=== PATIENT | female | born 1965 | race Caucasian/White ===

== ENCOUNTER 2016-08-02 12:09 | Emergency (ER) | payer SELFPAY ==
[~2016-08-02] VITALS: Ht 157.5 cm; Wt 46.7 kg
[2016-08-02 12:35] VITALS: BP 142/69
[2016-08-02] MEDS ORDERED: POLY17PO5 PO (13:23)
[2016-08-02] MEDS ORDERED: HYDR-971 PO (13:23)
[2016-08-02] MEDS ORDERED: HYDR30CR61 TP (13:23)
--- NOTE | 2016-08-02 13:23 | PHYS DOC ---
Past Medical History Past Medical History: Cancer Additional Past Medical Histor: cervix Past Surgical History: Appendectomy, , Tubal ligation Alcohol Use: None Drug Use: None Adult General Chief Complaint Chief Complaint: HEMORRHOIDS HPI HPI Patient is a 51 year old female presents emergency room with atraumatic anal pain and swelling for approximately one week. Patient does have a previous history of hemorrhoids flaring and childbirth in the past. She denies any history of colorectal disease. Patient denies abdominal pain, nausea, vomiting, diarrhea or constipation.-colored stools. Review of Systems Review of Systems Constitutional: Denies fever or chills [] Eyes: Denies change in visual acuity, redness, or eye pain [] HENT: Denies nasal congestion or sore throat [] Respiratory: Denies cough or shortness of breath [] Cardiovascular: No additional information not addressed in HPI [] GI: Denies abdominal pain, nausea, vomiting, bloody stools or diarrhea [] : Denies dysuria or hematuria [] Musculoskeletal: Denies back pain or joint pain [] Integument: Denies rash or skin lesions [] Neurologic: Denies headache, focal weakness or sensory changes [] Endocrine: Denies polyuria or polydipsia [] Allergies Allergies Allergies Coded Allergies Type Severity Reaction Last Updated Verified Sulfa (Sulfonamide Antibiotics) Allergy Intermediate 03/03/15 No codeine Allergy Intermediate 03/03/15 No Physical Exam Physical Exam Constitutional: Well developed, well nourished, no acute distress, non-toxic appearance. [] HENT: Normocephalic, atraumatic, bilateral external ears normal, oropharynx moist, no oral exudates, nose normal. [] Eyes: PERRLA, EOMI, conjunctiva normal, no discharge. [] Neck: Normal range of motion, no tenderness, supple, no stridor. [] Cardiovascular:Heart rate regular rhythm, no murmur [] Lungs & Thorax: Bilateral breath sounds clear to auscultation [] Abdomen: Bowel sounds normal, soft, no tenderness, no masses, no pulsatile masses. Grape-sized thrombosed hemorrhoid to the 5 o'clock position of patient' s anus. No active bleeding. Skin: Warm, dry, no erythema, no rash. [] Back: No tenderness, no CVA tenderness. [] Extremities: No tenderness, no cyanosis, no clubbing, ROM intact, no edema. [] Neurologic: Alert and oriented X 3, normal motor function, normal sensory function, no focal deficits noted. [] Psychologic: Affect normal, judgement normal, mood normal. [] Current Patient Data Vital Signs Vital Signs Date Time Temp Pulse Resp B/P Pulse Ox O2 Delivery O2 Flow Rate FiO2 08/02/16 12:35 98.5 107 16 97 Room Air 98.5 EKG EKG [] Radiology/Procedures Radiology/Procedures [] Course & Med Decision Making Course & Med Decision Making Pertinent Labs and Imaging studies reviewed. (See chart for details) [] Dragon Disclaimer Dragon Disclaimer This electronic medical record was generated, in whole or in part, using a voice recognition dictation system. Departure Departure Impression: Primary Impression: Hemorrhoid thrombosis Disposition: HOME, SELF-CARE Condition: GOOD Referrals: NO PCP (PCP) Patient Instructions: Hemorrhoids, [id number] Additional Instructions: 1. Take the medication as prescribed. X line 2. Review the discharge instructions provided for self-care and reasons to return the emergency room. 3. Call [phone] either this afternoon or tomorrow to schedule follow-up appointment for evaluation by a surgeon. Scripts Polyethylene Glycol 3350 (Miralax)17 Gm Powd.pack1 Packet PO DAILY #30 PACKET Ref 0 Prov:JAVI MURPHY 08/02/16 Hydrocortisone (Anusol-Hc)30 Gm Cream..g.1 Asha TP BID #30 GM Ref 1 Prov:JAVI MURPHY 08/02/16 Hydrocodone/Apap 5-325 ([place] 5-325 Tablet)1 Each Tablet1 Tab PO PRN Q6HRS PRN PAIN #10 TAB Prov:JAVI MURPHY 08/02/16 JAVI MURPHY Aug 02, 2016 13:23
== END 2016-08-02 13:35 | disposition home or self-care (01) ==
LOC: ER 12:09
DX: K64.5 Perianal venous thrombosis (principal); Z88.5 Allergy status to narcotic agent; Z88.2 Allergy status to sulfonamides; Z90.49 Acquired absence of other specified parts of digestive tract; Z98.51 Tubal ligation status
CPT/HCPCS: 99283

== ENCOUNTER 2018-07-10 21:14 | Emergency (ER) | payer OTHER ==
[~2018-07-10] VITALS: Ht 157.5 cm; Wt 50.8 kg
[~2018-07-10 21:14] MED LIST: HYDR-3164 PO; HYDR30CR61 TP; POLY17PO29 PO
[2018-07-10] MEDS ORDERED: MORPHINE SULFATE 4 MG/ML VIAL. IV ONE (21:30)
--- NOTE | 2018-07-10 21:32 | PHYS DOC ---
Past Medical History Past Medical History: Asthma, Cancer Additional Past Medical Histor: cervix Past Surgical History: Appendectomy, , Tubal ligation Smoking: Cigarettes, 1 Pack Per Day Alcohol Use: None Drug Use: None Adult General Chief Complaint Chief Complaint: GROIN PAIN HPI HPI Patient is a 53-year-old female presents to the emergency department for evaluation. The patient states for the past 2-3 days, she has had pain in her right groin. She denies any injury. Movement and palpation of the affected area worsen her pain. She states that rotation of her leg, as well as flexion and extension of her thigh worsens her pain. The pain does not radiate down into her thigh or lower leg. She has not had any leg swelling, numbness, or weakness. She states she has a remote history of DVTs, during pregnancies in her 20s, but has not had any problems with DVTs since then. She does state that she has had problems with "phlebitis" in the past. There are no alleviating or exacerbating factors to her symptoms, except as noted above. Review of Systems Review of Systems Constitutional: Denies fever or chills [] Eyes: Denies change in visual acuity, redness, or eye pain [] HENT: Denies nasal congestion or sore throat [] Respiratory: Denies cough or pleuritic pain, or shortness of breath [] Cardiovascular: The patient denies any shortness of breath, chest pain, palpitations, or orthopnea [] GI: Denies abdominal pain, nausea, vomiting, bloody stools or diarrhea [] : Denies dysuria or hematuria [] Musculoskeletal: Denies back pain or joint pain [] Integument: Denies rash or skin lesions [] Neurologic: Denies headache, focal weakness or sensory changes [] Endocrine: Denies polyuria or polydipsia [] All other systems were reviewed and found to be within normal limits, except as documented in this note. Current Medications Current Medications Current Medications Medications (Trade) Dose Ordered Sig/Rosa Start Time Stop Time Status Last Admin Dose Admin Info (CONTRAST GIVEN -- Rx MONITORING) 1 each PRN DAILY PRN 07/10/18 22:30 07/12/18 22:29 Iohexol (Omnipaque 300 Mg/ml) 60 ml 1X ONCE 07/10/18 22:15 07/10/18 22:18 DC 07/10/18 22:21 60 ML Morphine Sulfate (Morphine Sulfate) 4 mg 1X ONCE 07/10/18 21:30 07/10/18 21:31 DC 07/10/18 21:49 4 MG Ondansetron HCl (Zofran) 4 mg 1X ONCE 07/10/18 21:45 07/10/18 21:46 DC 07/10/18 21:49 4 MG Allergies Allergies Allergies Coded Allergies Type Severity Reaction Last Updated Verified Sulfa (Sulfonamide Antibiotics) Allergy Intermediate 03/03/15 No codeine Allergy Intermediate 03/03/15 No amoxicillin Allergy Unknown 07/10/18 Yes clavulanic acid Allergy Unknown 07/10/18 Yes Physical Exam Physical Exam PHYSICAL EXAM: CONSTITUTIONAL: Well developed, well nourished HEAD: normocephalic, atraumatic EENT: PERRL, EOMI. Conjunctivae normal color, sclerae non-icteric; moist mucous membranes. NECK: Supple, non-tender; no meningismus. LUNGS: Lungs CTA, breathing even and unlabored. Normal air movement. HEART: Regular rate and rhythm, no murmur CHEST: No deformity; non-tender ABDOMEN: The abdomen is soft, and non-tender, no masses or bruits. EXTREM: There is tenderness to palpation in the right groin/inguinal area, just lateral to the pubic symphysis on the right, without any skin changes or abscess. The tenderness to palpation is just medial to the femoral vein region, but appears somewhat more medial than the location of the femoral vein's assumed location, based on palpation of the femoral artery. There is no tenderness to palpation in the proximal thigh, however, and there is no edema noted to the right lower extremity. Normal ROM; no deformity, no calf tenderness. Normal pulses palpable in all extremities. There is no pedal edema. SKIN: No rash; no diaphoresis NEURO: Alert; normal speech and cognition; CN's grossly intact; strength grossly intact without focal deficit. BACK: No CVA TTP. Current Patient Data Vital Signs Vital Signs Date Time Temp Pulse Resp B/P (MAP) Pulse Ox O2 Delivery O2 Flow Rate FiO2 07/10/18 21:28 97.7 78 18 157/69 (98) 99 Room Air 97.7 Lab Values Laboratory Tests Test 07/10/18 21:38 White Blood Count 7.1 x10^3/uL (4.0-11.0) Red Blood Count 4.42 x10^6/uL (3.50-5.40) Hemoglobin 13.4 g/dL (12.0-15.5) Hematocrit 39.5 % (36.0-47.0) Mean Corpuscular Volume 89 fL (79-100) Mean Corpuscular Hemoglobin 30 pg (25-35) Mean Corpuscular Hemoglobin Concent 34 g/dL (31-37) Red Cell Distribution Width 13.2 % (11.5-14.5) Platelet Count 300 x10^3/uL (140-400) Neutrophils (%) (Auto) 50 % (31-73) Lymphocytes (%) (Auto) 40 % (24-48) Monocytes (%) (Auto) 7 % (0-9) Eosinophils (%) (Auto) 2 % (0-3) Basophils (%) (Auto) 2 % (0-3) Neutrophils # (Auto) 3.5 x10^3uL (1.8-7.7) Lymphocytes # (Auto) 2.9 x10^3/uL (1.0-4.8) Monocytes # (Auto) 0.5 x10^3/uL (0.0-1.1) Eosinophils # (Auto) 0.1 x10^3/uL (0.0-0.7) Basophils # (Auto) 0.1 x10^3/uL (0.0-0.2) Sodium Level 145 mmol/L (136-145) Potassium Level 4.0 mmol/L (3.5-5.1) Chloride Level 107 mmol/L (98-107) Carbon Dioxide Level 31 mmol/L (21-32) Anion Gap 7 (6-14) Blood Urea Nitrogen 14 mg/dL (7-20) Creatinine 1.0 mg/dL (0.6-1.0) Estimated GFR (Cockcroft-Gault) 58.2 Glucose Level 79 mg/dL (70-99) Calcium Level 8.9 mg/dL (8.5-10.1) C-Reactive Protein, Quantitative 0.8 mg/L (0-3.3) Laboratory Tests 07/10/18 21:38 Laboratory Tests 07/10/18 21:38 EKG EKG [] Radiology/Procedures Radiology/Procedures [PROCEDURE: CT PELVIS W/CONTRAST INDICATION: rt groin pain, no priors, [id number] 60ml COMPARISON: None. TECHNIQUE: Axial CT images obtained through the pelvis with contrast. One or more of the following individualized dose reduction techniques were utilized for this examination: 1. Automated exposure control; 2. Adjustment of the mA and/or kV according to patient size; 3. Use of iterative reconstruction technique. FINDINGS: Calcific atherosclerosis of visualized vasculature. Prominent periuterine vessels are identified as well as enlargement of the left ovarian vein. Urinary bladder has minimal urine within it at time of exam. Colonic diverticulosis. Mild prominence the wall of sigmoid colon. There is a couple mildly prominent loops of small bowel within the pelvis measuring up to about 26 mm which is borderline dilated. No drainable fluid collection is seen within the subcutaneous soft tissues of the right groin. No definite fracture of pelvis. IMPRESSION: 1. No evidence of fluid collection at right groin. 2. Prominent periuterine vessels are identified. Would correlate with possible causes such as pelvic congestion. 3. Colonic diverticulosis is identified. The sigmoid colon wall appears somewhat prominent however not very distended at the time of exam. Could be from lack of distention however cannot exclude a site of persistent narrowing from a stricture within the area, diverticulitis or a lesion in the area on this examination and would correlate with symptoms in the region. If more complete evaluation is desired a follow-up could be obtained to ensure that this does not persist or colonoscopy.] Course & Med Decision Making Course & Med Decision Making Pertinent Labs and Imaging studies reviewed. (See chart for details) [11:15 PM:Patient remains stable. I discussed test results, the need for close follow-up, and return precautions. I discussed the incidentally noted CT findings with the patient and the need for follow-up with gynecology and GI for further evaluation.] Dragon Disclaimer Dragon Disclaimer This electronic medical record was generated, in whole or in part, using a voice recognition dictation system. Departure Departure Impression: Primary Impression: Groin pain Disposition: 01 HOME, SELF-CARE Condition: STABLE Referrals: RAFAEL SHELTON Jr, MD,BEL Gregory MD Patient Instructions: Groin Strain Additional Instructions: Ibuprofen 400-600 mg every 6 hours may help improve your symptoms. Applying a heating pad to the affected area may help improve your symptoms. The prescribed medications may cause drowsiness-use caution while taking. The CT scan. Incidentally noted some abnormalities in your colon, as well as the blood vessels surrounding your uterus. It is important to get further evaluation and follow-up with both a team sports sales associate, and a belt tender for these findings for further evaluation. Please contact the specialist that the numbers provided. Scripts Diclofenac Sodium (DICLOFENAC SODIUM) 50 Mg Tablet.dr 1 TAB PO BID, #20 TAB 0 Refills Prov: RA JEROME MD 07/10/18 Cyclobenzaprine Hcl (CYCLOBENZAPRINE HCL) 10 Mg Tablet 1 TAB PO TID PRN for PAIN, #30 TAB Prov: RA JEROME MD 07/10/18 RA JEROME MD Jul 10, 2018 21:32
[2018-07-10] MEDS ORDERED: ONDANSETRON PF 4 MG/2 ML VIAL. IV ONE (21:45)
[2018-07-10 21:53] LABS: BASO # 0.1 x10^3/uL (0.0-0.2); BASO % 2 % (0-3); EOS # 0.1 x10^3/uL (0.0-0.7); EOS % 2 % (0-3); HEMATOCRIT 39.5 % (36.0-47.0); HEMOGLOBIN 13.4 g/dL (12.0-15.5); LYMPH # 2.9 x10^3/uL (1.0-4.8); LYMPH % 40 % (24-48); MEAN CORPUSCULAR HEMOGLOBIN 30 pg (25-35); MEAN CORPUSCULAR HGB CONC 34 g/dL (31-37); MEAN CORPUSCULAR VOLUME 89 fL (79-100); MONO # 0.5 x10^3/uL (0.0-1.1); MONO % 7 % (0-9); NEUT # 3.5 x10^3uL (1.8-7.7); NEUT % 50 % (31-73); PLATELET COUNT 300 x10^3/uL (140-400); RED BLOOD COUNT 4.42 x10^6/uL (3.50-5.40); RED CELL DISTRIBUTION WIDTH 13.2 % (11.5-14.5); WHITE BLOOD COUNT 7.1 x10^3/uL (4.0-11.0)
[2018-07-10 22:08] LABS: CALCIUM 8.9 mg/dL (8.5-10.1); GFR 58.2
[2018-07-10 22:11] LABS: C-REACTIVE PROTEIN 0.8 mg/L (0-3.3)
[2018-07-10] MEDS ORDERED: IOHEXOL 300 MG/ML 100ML VIAL. IV ONE (22:15)
[2018-07-10 22:30] VITALS: BP 121/67
[2018-07-10] MEDS ORDERED: CONTRAST GIVEN. MC PRN (22:30)
--- NOTE | 2018-07-10 23:01 | RAD ---
INDICATION: rt groin pain, no priors, [id number] 60ml COMPARISON: None. TECHNIQUE: Axial CT images obtained through the pelvis with contrast. One or more of the following individualized dose reduction techniques were utilized for this examination: 1. Automated exposure control; 2. Adjustment of the mA and/or kV according to patient size; 3. Use of iterative reconstruction technique. FINDINGS: Calcific atherosclerosis of visualized vasculature. Prominent periuterine vessels are identified as well as enlargement of the left ovarian vein. Urinary bladder has minimal urine within it at time of exam. Colonic diverticulosis. Mild prominence the wall of sigmoid colon. There is a couple mildly prominent loops of small bowel within the pelvis measuring up to about 26 mm which is borderline dilated. No drainable fluid collection is seen within the subcutaneous soft tissues of the right groin. No definite fracture of pelvis. IMPRESSION: 1. No evidence of fluid collection at right groin. 2. Prominent periuterine vessels are identified. Would correlate with possible causes such as pelvic congestion. 3. Colonic diverticulosis is identified. The sigmoid colon wall appears somewhat prominent however not very distended at the time of exam. Could be from lack of distention however cannot exclude a site of persistent narrowing from a stricture within the area, diverticulitis or a lesion in the area on this examination and would correlate with symptoms in the region. If more complete evaluation is desired a follow-up could be obtained to ensure that this does not persist or colonoscopy. Electronically signed by: Edwin Rodriguez MD (07/10/2018 10:57 PM) [facility]
[2018-07-10] MEDS ORDERED: DICL50TA4 PO (23:21)
[2018-07-10] MEDS ORDERED: CYCL10TA2 PO (23:21)
== END 2018-07-10 23:33 | disposition home or self-care (01) ==
LOC: ER 21:14
DX: R10.31 Right lower quadrant pain (principal); J45.909 Unspecified asthma, uncomplicated; F17.210 Nicotine dependence, cigarettes, uncomplicated; Z90.89 Acquired absence of other organs; Z88.2 Allergy status to sulfonamides; Z88.1 Allergy status to other antibiotic agents; Z88.5 Allergy status to narcotic agent; Z88.8 Allergy status to other drugs, medicaments and biological substances
CPT/HCPCS: 36415; 74170; 80048; 85025; 86140; 96374; 96375; 99284; J2270; J2405; Q9967; 99283-25

== ENCOUNTER → 2018-07-22 | Day surgery (SDC) | payer OTHER ==
[~2018-07-22] MED LIST changes: +ASPI-630 PO; +CYCL10TA2 PO; +DICL50TA4 PO; +HYDROmorphone 2 MG/ML VIAL IV PRN; +IV RINGERS,LACTATED 1000ML 1,000 ML IV SCH; +LIDOCAINE 1% PF 2 ML VIAL. ID PRN; +MORPHINE SULFATE 2 MG/ML VIAL. IV PRN; +MORPHINE SULFATE 4 MG/ML VIAL. IV PRN; +ONDANSETRON PF 4 MG/2 ML VIAL. IV PRN; +PROCHLORPERAZINE 10 MG/2 ML VIAL. IV PRN; +PROPOFOL 20 ML IV ONE; +PROPOFOL 40 ML IV ONE; +ePHEDrine PF IN SALINE 50 MG/5 ML DISP.SYRIN IV ONE; +fentaNYL PF VIAL 100 MCG/2 ML VIAL IV PRN
[2018-07-22 09:22] VITALS: BP 148/69
== END | disposition home or self-care (01) ==
LOC: SURG 07:03
PROVIDERS: ATTEND Internal Medicine
DX: K57.30 Diverticulosis of large intestine without perforation or abscess without bleeding (principal); I10 Essential (primary) hypertension; Z86.718 Personal history of other venous thrombosis and embolism; K21.9 Gastro-esophageal reflux disease without esophagitis; F17.200 Nicotine dependence, unspecified, uncomplicated; Z85.43 Personal history of malignant neoplasm of ovary; Z79.82 Long term (current) use of aspirin; Z88.2 Allergy status to sulfonamides; Z88.1 Allergy status to other antibiotic agents; Z88.5 Allergy status to narcotic agent; Z90.49 Acquired absence of other specified parts of digestive tract; Z98.890 Other specified postprocedural states; Z98.51 Tubal ligation status
CPT/HCPCS: 45378; J2704

== ENCOUNTER 2019-03-03 17:35 | Emergency (ER) | payer OTHER ==
[~2019-03-03] VITALS: Ht 157.5 cm; Wt 52.2 kg
[~2019-03-03 17:35] MED LIST changes: -HYDROmorphone 2 MG/ML VIAL IV PRN; -IV RINGERS,LACTATED 1000ML 1,000 ML IV SCH; -LIDOCAINE 1% PF 2 ML VIAL. ID PRN; -MORPHINE SULFATE 2 MG/ML VIAL. IV PRN; -MORPHINE SULFATE 4 MG/ML VIAL. IV PRN; -ONDANSETRON PF 4 MG/2 ML VIAL. IV PRN; -PROCHLORPERAZINE 10 MG/2 ML VIAL. IV PRN; -PROPOFOL 20 ML IV ONE; -PROPOFOL 40 ML IV ONE; -ePHEDrine PF IN SALINE 50 MG/5 ML DISP.SYRIN IV ONE; -fentaNYL PF VIAL 100 MCG/2 ML VIAL IV PRN
[2019-03-03 17:50] VITALS: BP 144/73
[2019-03-03] MEDS ORDERED: ORPHENADRINE CITRATE 60 MG/2 ML VIAL. IM ONE (18:30)
[2019-03-03] MEDS ORDERED: ONDANSETRON ODT 4 MG TAB.RAPDIS. PO ONE (18:30)
--- NOTE | 2019-03-03 18:39 | PHYS DOC ---
Past Medical History Past Medical History: Asthma, Cancer, Diverticulitis, TIA, Other Additional Past Medical Histor: cervix,PHELBITIS (BEL MARQUIS APRN) Past Surgical History: Appendectomy, , Tubal ligation, Other Additional Past Surgical Histo: LEEP (BEL MARQUIS APRN) Additional Information: 0.25 PPD Alcohol Use: None Drug Use: None (BEL MARQUIS APRN) Adult General Chief Complaint Chief Complaint: LOWER BACK PAIN OR INJURY HPI HPI Patient is a 54 year old female that presents to the ER after lifting up a storm window on Saturday and states ever since that she's been having back pain, neck pain, and has also been having left-sided rib pain. Reports 10 out of 10 pain that is sharp in nature. (BEL MARQUIS APRN) Review of Systems Review of Systems Constitutional: Denies fever or chills [] Eyes: Denies change in visual acuity, redness, or eye pain [] HENT: Denies nasal congestion or sore throat [] Respiratory: Denies cough or shortness of breath [] Cardiovascular: No additional information not addressed in HPI [] GI: Reports nausea. Denies abdominal pain, vomiting, bloody stools or diarrhea [] : Denies dysuria or hematuria [] Musculoskeletal: Reports neck and back pain. Integument: Denies rash or skin lesions [] Neurologic: Denies headache, focal weakness or sensory changes [] Endocrine: Denies polyuria or polydipsia [] Complete systems were reviewed and found to be within normal limits, except as documented in this note. (BEL MARQUIS APRN) Current Medications Current Medications Current Medications Medications (Trade) Dose Ordered Sig/Rosa Start Time Stop Time Status Last Admin Dose Admin Ondansetron HCl (Zofran Odt) 4 mg 1X ONCE 03/03/19 18:30 03/03/19 18:31 DC 03/03/19 18:28 4 MG Orphenadrine Citrate (Norflex) 60 mg 1X ONCE 03/03/19 18:30 03/03/19 18:31 DC 03/03/19 18:28 60 MG (PHUONG BATISTA MD) Allergies Allergies Allergies Coded Allergies Type Severity Reaction Last Updated Verified Sulfa (Sulfonamide Antibiotics) Allergy Intermediate 07/22/18 No codeine Allergy Intermediate 07/22/18 No amoxicillin Allergy Unknown 07/22/18 Yes clavulanic acid Allergy Unknown 07/22/18 Yes (PHUONG BATISTA MD) Physical Exam Physical Exam Constitutional: Well developed, well nourished, no acute distress, non-toxic appearance. [] HENT: Normocephalic, atraumatic, bilateral external ears normal, oropharynx moist, no oral exudates, nose normal. [] Eyes: PERRLA, EOMI, conjunctiva normal, no discharge. [] Neck: Normal range of motion, tenderness to left side of neck going down the left side of back follow muscle. Cardiovascular:Heart rate regular rhythm, no murmur [] Lungs & Thorax: Bilateral breath sounds clear to auscultation [] Abdomen: Bowel sounds normal, soft, no tenderness, no masses, no pulsatile masses. [] Skin: Warm, dry, no erythema, no rash. [] Back: See neck. Extremities: No tenderness, no cyanosis, no clubbing, ROM intact, no edema. [] Neurologic: Alert and oriented X 3, normal motor function, normal sensory function, no focal deficits noted. [] Psychologic: Affect normal, judgement normal, mood normal. [] (BEL MARQUIS APRN) Current Patient Data Vital Signs Vital Signs Date Time Temp Pulse Resp B/P (MAP) Pulse Ox O2 Delivery O2 Flow Rate FiO2 03/03/19 17:50 98.3 63 17 144/73 (96) 97 Room Air 98.3 (PHUONG BATISTA MD) EKG EKG [] (BEL MARQUIS APRN) Radiology/Procedures Radiology/Procedures X-ray interpreted by Dr. Batista No obvious acute abnormalities.[] (BEL MARQUIS APRN) Course & Med Decision Making Course & Med Decision Making Pertinent Labs and Imaging studies reviewed. (See chart for details) Appears to be musculoskeletal in nature, will get chest x-ray as patient is tender to the left side near ribs with concern for rib pain. Imaging negative, vitals ok, will d/c home with muscle relaxer. (BEL MARQUIS APRN) Course & Med Decision Making Staff Physician Addendum: I was working in the ER during the course of this patient's visit. I was available for consultation as needed, but I was not directly involved in the care of this patient. (PHUONG BATISTA MD) Mkon Disclaimer Dragon Disclaimer This electronic medical record was generated, in whole or in part, using a voice recognition dictation system. (BEL MARQUIS APRN) Departure Departure Impression: Primary Impression: Musculoskeletal back pain Disposition: HOME, SELF-CARE Condition: STABLE Referrals: NO PCP (PCP) Patient Instructions: Musculoskeletal Pain Additional Instructions: Thank you for visiting [facility]. We appreciate you trusting us with your care. If any additional problems come up don't hesitate to return to visit us. Please follow up with your primary care provider so they can plan additional care if needed and know about the problem that you had. If symptoms worsen come back to the Emergency Department. Any concerning symptoms that start such as chest pain, shortness of air, weakness or numbness on one side of the body, running high fevers or any other concerning symptoms return to the ER. Please fill your medications at any pharmacy and follow the prescription instructions. Scripts Orphenadrine Citrate (ORPHENADRINE CITRATE) 100 Mg Tablet.er 1 TAB PO BID PRN for MUSCLE PAIN, #20 TAB Prov: BEL MARQUIS APRN 03/03/19 BEL MARQUIS APRN Mar 03, 2019 18:39 PHUONG BATISTA MD Mar 07, 2019 05:22
[2019-03-03] MEDS ORDERED: ORPH100T PO (19:16)
--- NOTE | 2019-03-03 19:29 | RAD ---
Exam: Chest one view with left RIBS INDICATION: Shortness of breath TECHNIQUE: Frontal view of the chest with oblique frontal views of the left ribs Comparisons: None FINDINGS: The cardiomediastinal silhouette and pulmonary vessels are within normal limits. The lung and pleural spaces are clear. No displaced rib fracture IMPRESSION: 1. No acute cardiopulmonary process. 2. No displaced rib fracture Electronically signed by: Le Ash MD (03/03/2019 7:26 PM) [facility]
== END 2019-03-03 19:33 | disposition home or self-care (01) ==
LOC: ER 17:35
DX: M54.2 Cervicalgia (principal); M54.5 Low back pain; R07.81 Pleurodynia; R11.0 Nausea; Z88.2 Allergy status to sulfonamides; Z88.5 Allergy status to narcotic agent; Z88.1 Allergy status to other antibiotic agents
CPT/HCPCS: 71101; 96372; 99284; J2360; Q0162

== ENCOUNTER 2019-05-13 11:46 | Emergency (ER) | payer OTHER ==
[~2019-05-13] VITALS: Ht 154.9 cm; Wt 52.2 kg
[~2019-05-13 11:46] MED LIST changes: +ORPH100T PO
[2019-05-13] MEDS ORDERED: fentaNYL PF VIAL 100 MCG/2 ML VIAL IVP ONE (12:30)
[2019-05-13] MEDS ORDERED: FAMOTIDINE 20 MG/2 ML VIAL IVP ONE (12:30)
[2019-05-13] MEDS ORDERED: IV NORMAL SALINE 1000ML BAG 1,000 ML IV ONE (12:30)
[2019-05-13 12:33] LABS: BASO % 1 % (0-3); EOS % 0 % (0-3); HEMOGLOBIN 13.8 g/dL (12.0-15.5); LYMPH # 1.6 x10^3/uL (1.0-4.8); LYMPH % 19 % (24-48); MEAN CORPUSCULAR HEMOGLOBIN 29 pg (25-35); MEAN CORPUSCULAR HGB CONC 33 g/dL (31-37); MEAN CORPUSCULAR VOLUME 89 fL (79-100); MONO # 0.3 x10^3/uL (0.0-1.1); MONO % 4 % (0-9); NEUT # 6.4 x10^3/uL (1.8-7.7); NEUT % 76 % (31-73); PLATELET COUNT 361 x10^3/uL (140-400); RED BLOOD COUNT 4.71 x10^6/uL (3.50-5.40); RED CELL DISTRIBUTION WIDTH 13.4 % (11.5-14.5); WHITE BLOOD COUNT 8.4 x10^3/uL (4.0-11.0)
[2019-05-13 12:34] LABS: BILIRUBIN,URINE NEGATIVE (NEG); CLARITY,URINE CLEAR; COLOR,URINE YELLOW; NITRITE,URINE NEGATIVE (NEG); PROTEIN,URINE NEGATIVE (NEG-TRACE); UROBILINOGEN,URINE 0.2 mg/dL (0.2 mg/dL)
[2019-05-13 12:39] LABS: BARBITURATES NEG (NEG); BENZODIAZEPINES NEG (NEG); CANNABINOIDS POS (NEG); COCAINE NEG (NEG); FECAL OB PT POSITIVE (NEG); METHADONE NEG (NEG); OPIATES NEG (NEG); PHENCYCLIDINE NEG (NEG)
[2019-05-13 12:43] LABS: CALCIUM 8.9 mg/dL (8.5-10.1); CREATININE 0.9 mg/dL (0.6-1.0); GFR 65.5; POTASSIUM 3.8 mmol/L (3.5-5.1)
[2019-05-13 12:45] LABS: AMPHETAMINE/METHAMPHETAMINE NEG (NEG)
[2019-05-13 12:47] LABS: SQUAMOUS EPITHELIAL CELL,UR FEW /LPF
[2019-05-13 12:49] LABS: ALBUMIN 4.1 g/dL (3.4-5.0); ALBUMIN/GLOBULIN RATIO 1.2 (1.0-1.7); BACTERIA,URINE 0 /HPF (0-FEW); TOTAL BILIRUBIN 0.4 mg/dL (0.2-1.0); TOTAL PROTEIN 7.6 g/dL (6.4-8.2); WBC,URINE OCC /HPF (0-4)
[2019-05-13] MEDS ORDERED: CONTRAST GIVEN. MC PRN (13:15)
[2019-05-13] MEDS ORDERED: IOHEXOL 300 MG/ML 100ML VIAL. IV ONE (13:15)
--- NOTE | 2019-05-13 13:55 | RAD ---
CT of the abdomen and pelvis compared to CT scan of the pelvis dated July 10, 2018 for rectal bleeding, left lower quadrant pain. TECHNIQUE: Contiguous helical 5 mm axial images are obtained from the apex of diaphragm to the pelvic floor following administration of IV contrast. Sagittal and coronal reformations are evaluated. FINDINGS: There are small cysts distributed somewhat randomly throughout the lung bases. These do not have the typical distribution or appearance of emphysema, and there is no other underlying architectural change to the visualized lung bases. Lymphangioleiomyomatosis should be considered. Heart size within normal limits. Within the liver there is a tiny 3 mm hypodensity anteriorly within segment 4A which is too small to adequately characterize, but likely benign. Spleen, pancreas, and bilateral adrenal glands are grossly unremarkable. Gallbladder is normal in appearance. Left kidney is normal in appearance. The right kidney is somewhat shrunken and there are patchy areas of cortical thinning involving upper pole, suggesting prior renal injury. This kidney is functional and enhances homogeneously and symmetrically with the dominant left kidney. There is inhomogeneous opacification of large and small bowel, with no areas of focal bowel wall thickening or bowel dilatation. Innumerable sigmoid diverticula are present, and there is some hyperemia of the sigmoid mesentery, which could reflect early uncomplicated diverticulitis. No pericolonic abscesses are seen and there is no free fluid within the abdomen or pelvis. The appendix is not readily identified. The urinary bladder is partially fluid distended and grossly unremarkable. The uterus is noted, and grossly unchanged in size and configuration from the prior examination. There is redemonstration of prominent gonadal and pelvic veins, which can be associated with pelvic congestion syndrome. There is a small bone island in the right femoral head. Mild degenerative changes are seen in the lumbar facets. No suspicious osteoblastic or osteolytic bone lesions are identified. IMPRESSION: 1. Innumerable sigmoid diverticuli with hyperemia of the sigmoid mesentery. Findings may reflect uncomplicated diverticulitis. 2. Several thin-walled cysts distributed randomly throughout the lower lung parenchyma bilaterally, in and atypical distribution for COPD or pulmonary fibrosis. Lung architecture is otherwise normal. 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 3. Prominent pelvic veins, with enlarged bilateral gonadal veins, which may signify pelvic congestion. If patient has signs or symptoms of pelvic congestion syndrome, consider further elective evaluation with direct venography and gonadal vein embolization. 4. Mildly atrophic right kidney, with signs of prior cortical injury. PQRS Compliance Statement: One or more of the following individualized dose reduction techniques were utilized for this examination: 1. Automated exposure control 2. Adjustment of the mA and/or kV according to patient size 3. Use of iterative reconstruction technique Electronically signed by: Adrian Ewing MD (05/13/2019 1:52 PM) [id number]
[2019-05-13 14:00] VITALS: BP 153/61
--- NOTE | 2019-05-13 14:22 | PHYS DOC ---
Past Medical History Past Medical History: Asthma, Cancer, Diverticulitis, TIA, Other Additional Past Medical Histor: cervix,PHELBITIS Past Surgical History: Appendectomy, , Tubal ligation, Other Additional Past Surgical Histo: LEEP Alcohol Use: None Drug Use: None Adult General Chief Complaint Chief Complaint: RECTAL BLEED HPI HPI Patient is a 54 year old female who presents with female with history of TIA on a baby aspirin who presents to the ED today complaining of mild cramping left lower quadrant abdominal pain with bloody stools that began this morning. Patient denies any nausea vomiting. She describes the bloody stools as strikes of blood in her stools. Review of Systems Review of Systems Constitutional: Denies fever or chills [] Eyes: Denies change in visual acuity, redness, or eye pain [] HENT: Denies nasal congestion or sore throat [] Respiratory: Denies cough or shortness of breath [] Cardiovascular: No additional information not addressed in HPI [] GI: Reports left lower quadrant abdominal pain with bloody stools, denies nausea, vomiting, bloody stools : Denies dysuria or hematuria [] Musculoskeletal: Denies back pain or joint pain [] Integument: Denies rash or skin lesions [] Neurologic: Denies headache, focal weakness or sensory changes [] All other systems were reviewed and found to be within normal limits, except as documented in this note. Current Medications Current Medications Current Medications Medications (Trade) Dose Ordered Sig/Rosa Start Time Stop Time Status Last Admin Dose Admin Famotidine (Pepcid Vial) 20 mg 1X ONCE 05/13/19 12:30 05/13/19 12:31 DC 05/13/19 12:29 20 MG Fentanyl Citrate (Fentanyl 2ml Vial) 50 mcg 1X ONCE 05/13/19 12:30 05/13/19 12:31 DC 05/13/19 12:30 50 MCG Info (CONTRAST GIVEN -- Rx MONITORING) 1 each PRN DAILY PRN 05/13/19 13:15 05/15/19 13:14 Iohexol (Omnipaque 300 Mg/ml) 75 ml 1X ONCE 05/13/19 13:15 05/13/19 13:16 DC 05/13/19 13:10 75 ML Sodium Chloride 1,000 ml @ 1,000 mls/hr 1X ONCE 05/13/19 12:30 05/13/19 13:29 DC 05/13/19 12:30 1,000 MLS/HR Allergies Allergies Allergies Coded Allergies Type Severity Reaction Last Updated Verified Sulfa (Sulfonamide Antibiotics) Allergy Intermediate 07/22/18 No codeine Allergy Intermediate 07/22/18 No amoxicillin Allergy Unknown 07/22/18 Yes clavulanic acid Allergy Unknown 07/22/18 Yes Physical Exam Physical Exam Constitutional: Well developed, well nourished, no acute distress, non-toxic appearance. [] HENT: Normocephalic, atraumatic, bilateral external ears normal, oropharynx moist, no oral exudates, nose normal. [] Eyes: PERRLA, EOMI, conjunctiva normal, no discharge. [] Neck: Normal range of motion, no tenderness, supple, no stridor. [] Cardiovascular:Heart rate regular rhythm, no murmur [] Lungs & Thorax: Bilateral breath sounds clear to auscultation [] Abdomen: Bowel sounds normal, soft, mild tenderness on palpation of the left lower quadrant, no right upper quadrant or right lower quadrant tenderness, no masses, no pulsatile masses. [] Skin: Warm, dry, no erythema, no rash. [] Back: No tenderness, no CVA tenderness. [] Extremities: No tenderness, no cyanosis, no clubbing, ROM intact, no edema. [] Neurologic: Alert and oriented X 3, normal motor function, normal sensory function, no focal deficits noted. [] Psychologic: Affect normal, judgement normal, mood normal. [] Current Patient Data Vital Signs Vital Signs Date Time Temp Pulse Resp B/P (MAP) Pulse Ox O2 Delivery O2 Flow Rate FiO2 05/13/19 14:00 64 153/61 (91) 100 Room Air 05/13/19 12:06 97.8 18 97.8 Lab Values Laboratory Tests Test 05/13/19 12:20 White Blood Count 8.4 x10^3/uL (4.0-11.0) Red Blood Count 4.71 x10^6/uL (3.50-5.40) Hemoglobin 13.8 g/dL (12.0-15.5) Hematocrit 42.0 % (36.0-47.0) Mean Corpuscular Volume 89 fL (79-100) Mean Corpuscular Hemoglobin 29 pg (25-35) Mean Corpuscular Hemoglobin Concent 33 g/dL (31-37) Red Cell Distribution Width 13.4 % (11.5-14.5) Platelet Count 361 x10^3/uL (140-400) Neutrophils (%) (Auto) 76 % (31-73) H Lymphocytes (%) (Auto) 19 % (24-48) L Monocytes (%) (Auto) 4 % (0-9) Eosinophils (%) (Auto) 0 % (0-3) Basophils (%) (Auto) 1 % (0-3) Neutrophils # (Auto) 6.4 x10^3/uL (1.8-7.7) Lymphocytes # (Auto) 1.6 x10^3/uL (1.0-4.8) Monocytes # (Auto) 0.3 x10^3/uL (0.0-1.1) Eosinophils # (Auto) 0.0 x10^3/uL (0.0-0.7) Basophils # (Auto) 0.0 x10^3/uL (0.0-0.2) Urine Collection Type Unknown Urine Color Yellow Urine Clarity Clear Urine pH 6.0 Urine Specific Mead 1.010 Urine Protein Negative mg/dL (NEG-TRACE) Urine Glucose (UA) Negative mg/dL (NEG) Urine Ketones (Stick) Negative mg/dL (NEG) Urine Blood Small (NEG) Urine Nitrite Negative (NEG) Urine Bilirubin Negative (NEG) Urine Urobilinogen Dipstick 0.2 mg/dL (0.2 mg/dL) Urine Leukocyte Esterase Negative (NEG) Urine RBC 1-2 /HPF (0-2) Urine WBC Occ /HPF (0-4) Urine Squamous Epithelial Cells Few /LPF Urine Bacteria 0 /HPF (0-FEW) Stool Occult Blood Positive (NEG) Sodium Level 142 mmol/L (136-145) Potassium Level 3.8 mmol/L (3.5-5.1) Chloride Level 106 mmol/L (98-107) Carbon Dioxide Level 29 mmol/L (21-32) Anion Gap 7 (6-14) Blood Urea Nitrogen 13 mg/dL (7-20) Creatinine 0.9 mg/dL (0.6-1.0) Estimated GFR (Cockcroft-Gault) 65.5 BUN/Creatinine Ratio 14 (6-20) Glucose Level 85 mg/dL (70-99) Calcium Level 8.9 mg/dL (8.5-10.1) Total Bilirubin 0.4 mg/dL (0.2-1.0) Aspartate Amino Transferase (AST) 16 U/L (15-37) Alanine Aminotransferase (ALT) 16 U/L (14-59) Alkaline Phosphatase 90 U/L (46-116) Total Protein 7.6 g/dL (6.4-8.2) Albumin 4.1 g/dL (3.4-5.0) Albumin/Globulin Ratio 1.2 (1.0-1.7) Lipase 142 U/L (73-393) Urine Opiates Screen Neg (NEG) Urine Methadone Screen Neg (NEG) Urine Barbiturates Neg (NEG) Urine Phencyclidine Screen Neg (NEG) Urine Amphetamine/Methamphetamine Neg (NEG) Urine Benzodiazepines Screen Neg (NEG) Urine Cocaine Screen Neg (NEG) Urine Cannabinoids Screen Pos (NEG) Ethyl Alcohol Level < 10 mg/dL (0-10) Urine Ethyl Alcohol Neg (NEG) Laboratory Tests 05/13/19 12:20 Laboratory Tests 05/13/19 12:20 EKG EKG [] Radiology/Procedures Radiology/Procedures []PROCEDURE: CT ABD PELV W/ IV CONTRST ONLY CT of the abdomen and pelvis compared to CT scan of the pelvis dated July 10, 2018 for rectal bleeding, left lower quadrant pain. TECHNIQUE: Contiguous helical 5 mm axial images are obtained from the apex of diaphragm to the pelvic floor following administration of IV contrast. Sagittal and coronal reformations are evaluated. FINDINGS: There are small cysts distributed somewhat randomly throughout the lung bases. These do not have the typical distribution or appearance of emphysema, and there is no other underlying architectural change to the visualized lung bases. Lymphangioleiomyomatosis should be considered. Heart size within normal limits. Within the liver there is a tiny 3 mm hypodensity anteriorly within segment 4A which is too small to adequately characterize, but likely benign. Spleen, pancreas, and bilateral adrenal glands are grossly unremarkable. Gallbladder is normal in appearance. Left kidney is normal in appearance. The right kidney is somewhat shrunken and there are patchy areas of cortical thinning involving upper pole, suggesting prior renal injury. This kidney is functional and enhances homogeneously and symmetrically with the dominant left kidney. There is inhomogeneous opacification of large and small bowel, with no areas of focal bowel wall thickening or bowel dilatation. Innumerable sigmoid diverticula are present, and there is some hyperemia of the sigmoid mesentery, which could reflect early uncomplicated diverticulitis. No pericolonic abscesses are seen and there is no free fluid within the abdomen or pelvis. The appendix is not readily identified. The urinary bladder is partially fluid distended and grossly unremarkable. The uterus is noted, and grossly unchanged in size and configuration from the prior examination. There is redemonstration of prominent gonadal and pelvic veins, which can be associated with pelvic congestion syndrome. There is a small bone island in the right femoral head. Mild degenerative changes are seen in the lumbar facets. No suspicious osteoblastic or osteolytic bone lesions are identified. IMPRESSION: 1. Innumerable sigmoid diverticuli with hyperemia of the sigmoid mesentery. Findings may reflect uncomplicated diverticulitis. 2. Several thin-walled cysts distributed randomly throughout the lower lung parenchyma bilaterally, in and atypical distribution for COPD or pulmonary fibrosis. Lung architecture is otherwise normal. 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 3. Prominent pelvic veins, with enlarged bilateral gonadal veins, which may signify pelvic congestion. If patient has signs or symptoms of pelvic congestion syndrome, consider further elective evaluation with direct venography and gonadal vein embolization. 4. Mildly atrophic right kidney, with signs of prior cortical injury. PQRS Compliance Statement: One or more of the following individualized dose reduction techniques were utilized for this examination: 1. Automated exposure control 2. Adjustment of the mA and/or kV according to patient size 3. Use of iterative reconstruction technique Electronically signed by: Adrian Jain MD (05/13/2019 1:52 PM) [id number] DICTATED and SIGNED BY: ADRIAN JAIN MD DATE: 05/13/19 1352 Course & Med Decision Making Course & Med Decision Making Pertinent Labs and Imaging studies reviewed. (See chart for details) This is a 54-year-old female patient presenting to the ED today with left lower quadrant abdominal pain bloody stools, began this morning. CBC with normal WBC, normal hemoglobin and hematocrit, CMP-no acute findings + Hemoccult. CT of the abdomen and pelvic was noted for uncomplicated diverticulitis. She is discharged to home with Cipro and Flagyl follow-up with GI in the course of this week. She already has a GI specialist Mark Disclaimer Dragon Disclaimer This electronic medical record was generated, in whole or in part, using a voice recognition dictation system. Departure Departure Impression: Primary Impression: Diverticulitis Disposition: 01 HOME, SELF-CARE Condition: STABLE Referrals: GANESH NGUYEN (PCP) SHAGUFTA DOMÍNGUEZ MD follow up in one week Patient Instructions: Diverticulitis, [id number] Additional Instructions: You were evaluated in the summer noted to have diverticulitis, we put you on antibiotics, take them as prescribed until completed. Please follow-up with your GI doctor and primary care doctor in the course of this week or next week Scripts Metronidazole (FLAGYL) 500 Mg Tablet 500 MG PO TID, #30 TAB Prov: EDUARDO RICO APRN 05/13/19 Ciprofloxacin Hcl (CIPRO) 500 Mg Tablet 1 TAB PO BID for 10 Days, #20 TAB 0 Refills Prov: EDUARDO RICO APRN 05/13/19 Ondansetron (ONDANSETRON ODT) 4 Mg Tab.rapdis 1 TAB PO PRN Q6-8HRS, #16 TAB Prov: EDUARDO RICO APRN 05/13/19 EDUARDO RICO APRN May 13, 2019 14:22
[2019-05-13] MEDS ORDERED: ONDA4TAB12 PO (14:31)
[2019-05-13] MEDS ORDERED: METR500T PO (14:31)
[2019-05-13] MEDS ORDERED: HYDR-3164 PO (14:31)
[2019-05-13] MEDS ORDERED: CIPR500T94 PO (14:31)
== END 2019-05-13 14:43 | disposition home or self-care (01) ==
LOC: ER 11:46
DX: K57.92 Diverticulitis of intestine, part unspecified, without perforation or abscess without bleeding (principal); R19.7 Diarrhea, unspecified; J45.909 Unspecified asthma, uncomplicated; Z90.89 Acquired absence of other organs; Z98.51 Tubal ligation status
CPT/HCPCS: 36415; 74177; 80053; 80307; 81001; 82274; 83690; 85025; 96361; 96374; 96375; 99285; G0480; J3010; J3490; J7030; Q9967

== ENCOUNTER 2020-09-01 16:48 | Emergency (ER) | payer OTHER ==
[~2020-09-01] VITALS: Ht 157.5 cm; Wt 50.0 kg
[~2020-09-01 16:48] MED LIST changes: +CIPR500T94 PO; +METR500T PO; +ONDA4TAB12 PO
[2020-09-01 17:16] VITALS: BP 140/65
[2020-09-01] MEDS ORDERED: PRED50TA PO (17:17)
[2020-09-01] MEDS ORDERED: HYDR-2759 PO (17:17)
--- NOTE | 2020-09-01 17:18 | ED.ADGEN ---
Past Medical History Past Medical History: Asthma, Cancer, Diverticulitis, TIA, Other Additional Past Medical Histor: cervix,PHELBITIS Past Surgical History: Appendectomy, , Tubal ligation, Other Additional Past Surgical Histo: LEEP Smoking Status: Current Every Day Smoker Alcohol Use: None Drug Use: None General Adult EDM: Chief Complaint: BACK PAIN OR INJURY HPI: HPI: Patient is a 55-year-old female who arrives ambulatory to the emergency department complaint of left-sided sacral back pain. Patient reports she awoke with this pain on Saturday of this week and it has gotten progressively worse. Patient states she has pain with any kind of ambulation and states her pain feels as if it is in the bone. Patient points to the sacroiliac joint as to where her pain is and states it does not radiate. She denies any history of trauma. She further denies any rash or swelling. Additionally she denies any saddle anesthesia or change in her bowel or bladder habits. Specifically she denies any history of fever and maintains she has been in control of all genitourinary function since this began. She is awake, alert and uncomfortable appearing. Review of Systems: Review of Systems: Constitutional: Denies fever or chills. [] Eyes: Denies change in visual acuity. [] HENT: Denies nasal congestion or sore throat. [] Respiratory: Denies cough or shortness of breath. [] Cardiovascular: Denies chest pain or edema. [] GI: Denies abdominal pain, nausea, vomiting, bloody stools or diarrhea. [] : Denies dysuria. [] Musculoskeletal: Reports sacral back pain. [] Integument: Denies rash. [] Neurologic: Denies headache, focal weakness or sensory changes. [] Endocrine: Denies polyuria or polydipsia. [] Lymphatic: Denies swollen glands. [] Psychiatric: Denies depression or anxiety. [] Family History: Family History: Noncontributory Allergies: Allergies: Allergies Coded Allergies Type Severity Reaction Last Updated Verified Sulfa (Sulfonamide Antibiotics) Allergy Intermediate 07/22/18 No codeine Allergy Intermediate 07/22/18 No amoxicillin Allergy Unknown 07/22/18 Yes clavulanic acid Allergy Unknown 07/22/18 Yes Physical Exam: PE: Constitutional: Well developed, well nourished, no acute distress, non-toxic appearance. [] HENT: Normocephalic, atraumatic, bilateral external ears normal, oropharynx moist, no oral exudates, nose normal. [] Eyes: PERRLA, EOMI, conjunctiva normal, no discharge. [] Neck: Normal range of motion, no tenderness, supple, no stridor. [] Cardiovascular:Heart rate regular rhythm, no murmur [] Lungs & Thorax: Bilateral breath sounds clear to auscultation [] Abdomen: Bowel sounds normal, soft, no tenderness, no masses, no pulsatile masses. [] Skin: Warm, dry, no erythema, no rash. [] Back: Patient has point tenderness at the sacroiliac joint at the left side. There is no midline tenderness nor is the right-sided sacroiliac tenderness. There are no masses or swelling appreciated in the spinal column or pelvic structures posteriorly. There is no CVA tenderness. [] Extremities: No tenderness, no cyanosis, no clubbing, ROM intact, no edema. [] Neurologic: Alert and oriented X 3, normal motor function, normal sensory function, no focal deficits noted. [] Psychologic: Affect normal, judgement normal, mood normal. [] Current Patient Data: Vital Signs: Vital Signs Date Time Temp Pulse Resp B/P (MAP) Pulse Ox O2 Delivery O2 Flow Rate FiO2 09/01/20 17:16 98.1 69 16 140/65 (90) 96 Room Air 98.1 EKG: EKG: [] Heart Score: Risk Factors: Risk Factors: DM, Current or recent (<one month) smoker, HTN, HLP, family history of CAD, obesity. Risk Scores: Score 0 - 3: 2.5% MACE over next 6 weeks - Discharge Home Score 4 - 6: 20.3% MACE over next 6 weeks - Admit for Clinical Observation Score 7 - 10: 72.7% MACE over next 6 weeks - Early Invasive Strategies Radiology/Procedures: Radiology/Procedures: [] Course & Med Decision Making: Course & Med Decision Making Pertinent Labs and Imaging studies reviewed. (See chart for details) [] Dragon Disclaimer: Dragon Disclaimer: This electronic medical record was generated, in whole or in part, using a voice recognition dictation system. Departure Departure Impression: Primary Impression: Sacroiliitis Disposition: 01 DC HOME SELF CARE/HOMELESS Condition: STABLE Referrals: GANESH NGUYEN (PCP) Patient Instructions: Sacroiliac Joint Dysfunction Scripts Prednisone (PREDNISONE) 50 Mg Tablet 1 TAB PO DAILY for 5 Days, #5 TAB Prov: FERNANDO D ELA GARZA DO 09/01/20 Hydrocodone/Acetaminophen (Hydrocodone-Acetamin 5-325 mg) 1 Each Tablet 1 EACH PO Q6HRS for 3 Days, #12 TAB Prov: FERNANDO DE LA GARZA DO 09/01/20 FERNANDO DE LA GARZA DO Sep 01, 2020 17:17
== END 2020-09-01 17:46 | disposition home or self-care (01) ==
LOC: ER 16:48
DX: M46.1 Sacroiliitis, not elsewhere classified (principal); J45.909 Unspecified asthma, uncomplicated; F17.200 Nicotine dependence, unspecified, uncomplicated; Z86.73 Personal history of transient ischemic attack (TIA), and cerebral infarction without residual deficits; Z90.89 Acquired absence of other organs; Z98.51 Tubal ligation status; Z88.1 Allergy status to other antibiotic agents; Z88.2 Allergy status to sulfonamides; Z88.5 Allergy status to narcotic agent; Z88.8 Allergy status to other drugs, medicaments and biological substances
CPT/HCPCS: 99283

== ENCOUNTER 2021-07-18 18:40 | Emergency (ER) | payer OTHER ==
[~2021-07-18] VITALS: Ht 157.5 cm; Wt 46.0 kg
[~2021-07-18 18:40] MED LIST changes: +CYCL10TA19 PO; -CYCL10TA2 PO; +HYDR-2759 PO; +PRED50TA PO
[2021-07-18 21:11] VITALS: BP 132/47
--- NOTE | 2021-07-18 23:17 | PHYS DOC ---
Past Medical History Past Medical History: Asthma, Cancer, Diverticulitis, TIA, Other Additional Past Medical Histor: cervix,PHELBITIS Past Surgical History: Appendectomy, , Tubal ligation, Other Additional Past Surgical Histo: LEEP Smoking Status: Current Every Day Smoker Alcohol Use: None Drug Use: None General Adult EDM: Chief Complaint: BACK PAIN OR INJURY HPI: HPI: Patient is a 56-year-old female who presents to the emergency department for left sided back pain that radiates into her hips that started today. She rates it 8 out of 10. Is worse with ambulation. She has been taking ibuprofen at home. Patient denies any urinary symptoms, wounds, injury, history of kidney stones, loss of bowel or bladder, saddle anesthesias. Review of Systems: Review of Systems: GI: See HPI : See HPI Musculoskeletal: See HPI [] Integument: See HPI Neurologic: See HPI Heart Score: C/O Chest Pain: N/A Risk Factors: Risk Factors: DM, Current or recent (<one month) smoker, HTN, HLP, family history of CAD, obesity. Risk Scores: Score 0 - 3: 2.5% MACE over next 6 weeks - Discharge Home Score 4 - 6: 20.3% MACE over next 6 weeks - Admit for Clinical Observation Score 7 - 10: 72.7% MACE over next 6 weeks - Early Invasive Strategies Allergies: Allergies: Allergies Coded Allergies Type Severity Reaction Last Updated Verified Sulfa (Sulfonamide Antibiotics) Allergy Intermediate 07/22/18 No codeine Allergy Intermediate 07/22/18 No amoxicillin Allergy Unknown 07/22/18 Yes clavulanic acid Allergy Unknown 07/22/18 Yes Physical Exam: PE: Constitutional: Well developed, well nourished, no acute distress, non-toxic appearance. [] HENT: Normocephalic, atraumatic, bilateral external ears normal, oropharynx moist, no oral exudates, nose normal. [] Eyes: PERRLA, EOMI, conjunctiva normal, no discharge. [] Neck: Normal range of motion, no bony spinal tenderness, no step-offs or deformities, supple, no stridor. [] Cardiovascular: Normal peripheral perfusion Lungs & Thorax: Normal work of breathing, no tachypnea Abdomen: Abdomen soft and flat. Skin: Warm, dry, no erythema, no rash. [] Back: No bony spinal tenderness, left-sided lumbar paraspinal tenderness with palpation, no CVA tenderness, normal range of motion. [] Extremities: No tenderness, no cyanosis, no clubbing, ROM intact, no edema. [] Neurologic: Alert and oriented X 3, normal motor function, normal sensory funct ion, no focal deficits noted. [] Psychologic: Affect normal, judgement normal, mood normal. [] Current Patient Data: Vital Signs: Vital Signs Date Time Temp Pulse Resp B/P (MAP) Pulse Ox O2 Delivery O2 Flow Rate FiO2 07/18/21 21:11 98.0 64 16 132/47 (75) 98 Room Air 98.0 EKG: EKG: [] Radiology/Procedures: Radiology/Procedures: [] Course & Med Decision Making: Course & Med Decision Making Pertinent Labs and Imaging studies reviewed. (See chart for details) [] Patient presents to the emergency department for left lower back pain that radiates into her hip that started today. She denies any injuries. Imaging was performed of her lumbar spine that showed no acute findings. Patient had a positive straight leg raise. She did not have any urinary symptoms or CVA tenderness. A urinalysis was performed that showed a mild urinary tract infection she will be treated with an antibiotic, she was discharged home with Keflex, she states that she is not allergic to amoxicillin or cephalosporins.. Patient's pain was treated in the emergency department. She was advised to take anti-inflammatory medications at home. I discussed with patient all findings and diagnostic testing as well as the need to follow-up with PCP for further eval uation and treatment or return to the ER if any new or worsening symptoms. Strict return precautions were also discussed at length. Patient voiced understanding and agreement with the plan. Patient is hemodynamically stable at the time of disposition. Dragon Disclaimer: Dragon Disclaimer: This electronic medical record was generated, in whole or in part, using a voice recognition dictation system. Departure Departure Impression: Primary Impression: Urinary tract infection Qualified Codes: N30.00 - Acute cystitis without hematuria Disposition: HOME / SELF CARE / HOMELESS Condition: GOOD Referrals: GANESH NGUYEN (PCP) Patient Instructions: Urinary Tract Infection Additional Instructions: You were seen in the emergency department for back pain today. You were treated in the ER with anti-inflammatory medications and muscle relaxer. Please continue to take anti-inflammatory medications like ibuprofen or naproxen at home. Your urinalysis does show urinary tract infection you will be discharged home with an antibiotic. Please start and finish it completely. Increase your fluids and avoid any bladder irritants like caffeine, sugary beverages or alcohol. Please follow-up with your primary care provider tomorrow regarding your ER visit. Please return to the emergency department if you develop abdominal pain, back pain, intractable nausea or vomiting, high fevers refractory to treatment. Scripts Cephalexin (CEPHALEXIN) 500 Mg Tablet 1 TAB PO BID for 7 Days, #14 TAB 0 Refills Prov: MEME BURRELL APRN 07/19/21 MEME BURRELL APRN Jul 18, 2021 23:17
[2021-07-18 23:27] LABS: BILIRUBIN,URINE NEGATIVE (NEG); CLARITY,URINE CLEAR; COLOR,URINE YELLOW; NITRITE,URINE NEGATIVE (NEG); PROTEIN,URINE NEGATIVE (NEG-TRACE); UROBILINOGEN,URINE 0.2 mg/dL (0.2 mg/dL)
[2021-07-18 23:32] LABS: U PREG PATIENT NEGATIVE (NEG)
--- NOTE | 2021-07-18 23:33 | RAD ---
EXAM: AP, lateral and lumbosacral spot views of the lumbar spine DATE: 07/18/2021 11:24 PM INDICATION: Reason: back pain / Spl. Instructions: / History: COMPARISON: No Prior FINDINGS: 5 nonrib-bearing lumbar-type vertebral bodies. Vertebral body heights are preserved. No acute fractur e. Disc heights are preserved. Facet degenerative changes greatest at L4-5 and L5-S1. Mild L4-5 and L 5-S1 disc height loss. No spondylolisthesis. IMPRESSION: 1. Multilevel spondylosis as above 2. Negative acute fracture or subluxation. Electronically signed by: Ran Rivera MD (07/18/2021 11:31 PM) [facility]
[2021-07-18 23:34] LABS: BACTERIA,URINE FEW /HPF (0-FEW)
[2021-07-19] MEDS: ORPHENADRINE CITRATE 60 MG/2 ML VIAL. IM ONE (00:05)
[2021-07-19] MEDS: KETOROLAC 60 MG/2 ML VIAL. IM ONE (00:05)
[2021-07-19] MEDS ORDERED: NITR100C62 PO (00:15)
[2021-07-19] MEDS ORDERED: CYCL5TAB PO (00:16)
[2021-07-19] MEDS ORDERED: CEPH500T PO (00:20)
== END 2021-07-19 00:40 | disposition home or self-care (01) ==
LOC: ER 18:40
DX: N30.00 Acute cystitis without hematuria (principal); J45.909 Unspecified asthma, uncomplicated; F17.200 Nicotine dependence, unspecified, uncomplicated; Z86.73 Personal history of transient ischemic attack (TIA), and cerebral infarction without residual deficits; Z90.89 Acquired absence of other organs; Z98.890 Other specified postprocedural states; Z98.51 Tubal ligation status; Z88.2 Allergy status to sulfonamides; Z88.5 Allergy status to narcotic agent; Z88.1 Allergy status to other antibiotic agents
CPT/HCPCS: 72100; 81001; 81025; 87086; 96372; 99284; J1885; J2360

== ENCOUNTER 2021-09-17 14:23 | Emergency (ER) | payer OTHER ==
[~2021-09-17] VITALS: Ht 152.4 cm; Wt 49.0 kg
[~2021-09-17 14:23] MED LIST changes: +CEPH500T PO; +CYCL5TAB PO; +NITR100C62 PO
[2021-09-17] MEDS ORDERED: ONDANSETRON PF 4 MG/2 ML VIAL. IVP ONE (15:30)
[2021-09-17] MEDS ORDERED: fentaNYL PF VIAL 100 MCG/2 ML VIAL IVP ONE (15:30)
[2021-09-17 15:37] LABS: BASO # 0.1 x10^3/uL (0.0-0.2); BASO % 1 % (0-3); EOS # 0.1 x10^3/uL (0.0-0.7); EOS % 1 % (0-3); HEMATOCRIT 41.6 % (36.0-47.0); HEMOGLOBIN 13.6 g/dL (12.0-15.5); LYMPH # 2.1 x10^3/uL (1.0-4.8); LYMPH % 26 % (24-48); MEAN CORPUSCULAR HEMOGLOBIN 29 pg (25-35); MEAN CORPUSCULAR HGB CONC 33 g/dL (31-37); MEAN CORPUSCULAR VOLUME 87 fL (79-100); MONO # 0.4 x10^3/uL (0.0-1.1); MONO % 5 % (0-9); NEUT # 5.5 x10^3/uL (1.8-7.7); NEUT % 67 % (31-73); PLATELET COUNT 317 x10^3/uL (140-400); RED BLOOD COUNT 4.77 x10^6/uL (3.50-5.40); RED CELL DISTRIBUTION WIDTH 13.4 % (11.5-14.5); WHITE BLOOD COUNT 8.2 x10^3/uL (4.0-11.0)
[2021-09-17 15:53] LABS: CALCIUM 9.2 mg/dL (8.5-10.1); CREATININE 0.9 mg/dL (0.6-1.0); POTASSIUM 4.7 mmol/L (3.5-5.1)
[2021-09-17 15:54] LABS: BARBITURATES NEG (NEG); BENZODIAZEPINES NEG (NEG); CANNABINOIDS POS (NEG); COCAINE NEG (NEG); METHADONE NEG (NEG); OPIATES NEG (NEG); PHENCYCLIDINE NEG (NEG)
[2021-09-17 15:55] LABS: BILIRUBIN,URINE NEGATIVE (NEG); CLARITY,URINE CLEAR; COLOR,URINE YELLOW; NITRITE,URINE NEGATIVE (NEG); PROTEIN,URINE NEGATIVE (NEG-TRACE); UROBILINOGEN,URINE 0.2 mg/dL (0.2 mg/dL)
[2021-09-17 15:56] LABS: AMPHETAMINE/METHAMPHETAMINE NEG (NEG); BACTERIA,URINE 0 /HPF (0-FEW); RBC,URINE OCC /HPF (0-2); WBC,URINE OCC /HPF (0-4)
[2021-09-17 15:57] LABS: ALBUMIN 4.1 g/dL (3.4-5.0); ALBUMIN/GLOBULIN RATIO 1.3 (1.0-1.7); TOTAL BILIRUBIN 0.2 mg/dL (0.2-1.0); TOTAL PROTEIN 7.2 g/dL (6.4-8.2)
--- NOTE | 2021-09-17 16:25 | PHYS DOC ---
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 Patient reports nausea, no vomiting, describes the pain as sharp and intermittent, denies anything specifically exacerbating or relieving the pain. 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 [] Eyes: Denies change in visual acuity. [] HENT: Denies nasal congestion or sore throat. [] Respiratory: Denies cough or shortness of breath. [] Cardiovascular: Denies chest pain or edema. [] GI: Reports right lower quadrant abdominal pain/pelvic pain, denies bloody stools or diarrhea. [] : Denies dysuria. [] Musculoskeletal: Denies back pain or joint pain. [] Integument: Denies rash. [] Neurologic: Denies headache, focal weakness or sensory changes. [] Psychiatric: Denies depression or anxiety. [] (EDUARDO RICO EDUCATION SITE MANAGER) Heart Score: C/O Chest Pain: N/A Risk Factors: Risk Factors: DM, Current or recent (<one month) smoker, HTN, HLP, family history of CAD, obesity. Risk Scores: Score 0 - 3: 2.5% MACE over next 6 weeks - Discharge Home Score 4 - 6: 20.3% MACE over next 6 weeks - Admit for Clinical Observation Score 7 - 10: 72.7% MACE over next 6 weeks - Early Invasive Strategies (EDUARDO RICO EDUCATION SITE MANAGER) Current Medications: Current Medications Medications (Trade) Dose Ordered Sig/Rosa Start Time Stop Time Status Last Admin Dose Admin Fentanyl Citrate (Fentanyl 2ml Vial) 50 mcg 1X ONCE 09/17/21 15:30 09/17/21 15:31 DC 09/17/21 15:49 50 MCG Ondansetron HCl (Zofran) 4 mg 1X ONCE 09/17/21 15:30 09/17/21 15:31 DC 09/17/21 15:49 4 MG (EDUARDO RICO M EDUCATION SITE MANAGER) Allergies: Allergies: Allergies Coded Allergies Type Severity Reaction Last Updated Verified Sulfa (Sulfonamide Antibiotics) Allergy Intermediate 07/22/18 No amoxicillin Allergy Intermediate 07/18/21 Yes clavulanic acid Allergy Intermediate 07/18/21 Yes codeine Allergy Intermediate 07/22/18 No (HEMANTAEDUARDO M EDUCATION SITE MANAGER) Physical Exam: PE: Constitutional: Well developed, well nourished, no acute distress, non-toxic appearance. [] HENT: Normocephalic, atraumatic, bilateral external ears normal, oropharynx moist, no oral exudates, nose normal. [] Eyes: PERRLA, EOMI, conjunctiva normal, no discharge. [] Neck: Normal range of motion, no tenderness, supple, no stridor. [] Cardiovascular:Heart rate regular rhythm, no murmur [] Lungs & Thorax: Bilateral breath sounds clear to auscultation [] Abdomen: Flat abdomen. Bowel sounds normal, soft, right pelvic/right lower quadrant tenderness, no masses, no pulsatile masses. [] Skin: Warm, dry, no erythema, no rash. [] Back: No tenderness, no CVA tenderness. [] Extremities: No tenderness, no cyanosis, no clubbing, ROM intact, no edema. [] Neurologic: Alert and oriented X 3, normal motor function, normal sensory function, no focal deficits noted. [] Psychologic: Affect normal, judgement normal, mood normal. [] (HEMANTA,EDUARDO M EDUCATION SITE MANAGER) Current Patient Data: Labs: Laboratory Tests Test 09/17/21 15:10 09/17/21 15:27 Urine Collection Type Unknown Urine Color Yellow Urine Clarity Clear Urine pH 6.0 (<5.0-8.0) Urine Specific Haiku >=1.030 (1.000-1.030) Urine Protein Negative mg/dL (NEG-TRACE) Urine Glucose (UA) Negative mg/dL (NEG) Urine Ketones (Stick) Negative mg/dL (NEG) Urine Blood Trace (NEG) Urine Nitrite Negative (NEG) Urine Bilirubin Negative (NEG) Urine Urobilinogen Dipstick 0.2 mg/dL (0.2 mg/dL) Urine Leukocyte Esterase Negative (NEG) Urine RBC Occ /HPF (0-2) Urine WBC Occ /HPF (0-4) Urine Squamous Epithelial Cells Few /LPF Urine Bacteria 0 /HPF (0-FEW) Urine Mucus Slight /LPF Urine Opiates Screen Neg (NEG) Urine Methadone Screen Neg (NEG) Urine Barbiturates Neg (NEG) Urine Phencyclidine Screen Neg (NEG) Urine Amphetamine/Methamphetamine Neg (NEG) Urine Benzodiazepines Screen Neg (NEG) Urine Cocaine Screen Neg (NEG) Urine Cannabinoids Screen Pos (NEG) Urine Ethyl Alcohol Neg (NEG) White Blood Count 8.2 x10^3/uL (4.0-11.0) Red Blood Count 4.77 x10^6/uL (3.50-5.40) Hemoglobin 13.6 g/dL (12.0-15.5) Hematocrit 41.6 % (36.0-47.0) Mean Corpuscular Volume 87 fL (79-100) Mean Corpuscular Hemoglobin 29 pg (25-35) Mean Corpuscular Hemoglobin Concent 33 g/dL (31-37) Red Cell Distribution Width 13.4 % (11.5-14.5) Platelet Count 317 x10^3/uL (140-400) Neutrophils (%) (Auto) 67 % (31-73) Lymphocytes (%) (Auto) 26 % (24-48) Monocytes (%) (Auto) 5 % (0-9) Eosinophils (%) (Auto) 1 % (0-3) Basophils (%) (Auto) 1 % (0-3) Neutrophils # (Auto) 5.5 x10^3/uL (1.8-7.7) Lymphocytes # (Auto) 2.1 x10^3/uL (1.0-4.8) Monocytes # (Auto) 0.4 x10^3/uL (0.0-1.1) Eosinophils # (Auto) 0.1 x10^3/uL (0.0-0.7) Basophils # (Auto) 0.1 x10^3/uL (0.0-0.2) Sodium Level 143 mmol/L (136-145) Potassium Level 4.7 mmol/L (3.5-5.1) Chloride Level 106 mmol/L (98-107) Carbon Dioxide Level 28 mmol/L (21-32) Anion Gap 9 (6-14) Blood Urea Nitrogen 14 mg/dL (7-20) Creatinine 0.9 mg/dL (0.6-1.0) Estimated GFR (Cockcroft-Gault) 65.0 BUN/Creatinine Ratio 16 (6-20) Glucose Level 86 mg/dL (70-99) Calcium Level 9.2 mg/dL (8.5-10.1) Total Bilirubin 0.2 mg/dL (0.2-1.0) Aspartate Amino Transferase (AST) 16 U/L (15-37) Alanine Aminotransferase (ALT) 17 U/L (14-59) Alkaline Phosphatase 80 U/L (46-116) Total Protein 7.2 g/dL (6.4-8.2) Albumin 4.1 g/dL (3.4-5.0) Albumin/Globulin Ratio 1.3 (1.0-1.7) Lipase 411 U/L (73-393) H Ethyl Alcohol Level < 10 mg/dL (0-10) Laboratory Tests 09/17/21 15:27 Laboratory Tests 09/17/21 15:27 Vital Signs: Vital Signs Date Time Temp Pulse Resp B/P (MAP) Pulse Ox O2 Delivery O2 Flow Rate FiO2 09/17/21 14:58 98.8 83 16 133/63 (86) 94 Room Air 98.8 ([employer] EDUCATION SITE MANAGER) EKG: EKG: [] ([employer] EDUCATION SITE MANAGER) Radiology/Procedures: Radiology/Procedures: PROCEDURE: PELVIS W/TV Exam Date: 09/17/2021 4:05 PM US PELVIS W/TV Indication: Reason: RLQ pelvic pain / Spl. Instructions: / History: . TECHNIQUE: Multiple longitudinal and transverse sonographic images were obtained of the pelvis using a transabdominal and transvaginal approach. Color Doppler imaging was performed on the ovaries bilaterally. Transvaginal imaging was included to better evaluate the uterus, ovaries, and adnexa. FINDINGS: The uterus measures 7.3 x 3.3 x 2.9 cm. The endometrial complex measures 1 mm in thickness. The left ovary is not identified due to overlying bowel gas. The right ovary measures 1.9 x 1.5 x 1.0 cm. Color Doppler imaging demonstrates normal vascularity in the right ovary. No pelvic free fluid or mass is seen. IMPRESSION: Normal examination of the uterus and right ovary. Left ovary is not identified due to overlying bowel gas. Electronically signed by: Lianna Garcias MD (09/17/2021 6:15 PM) [id number] DICTATED and SIGNED BY: LIANNA GARCIAS MD DATE: 09/17/21 [id number] []PROCEDURE: CT ABD PELV W/ IV CONTRST ONLY Exam Date: 09/17/2021 5:[address] ABDOMEN+PELVIS W Indication: Reason: abd pain / Spl. Instructions: IV omni 300 75 mls / History: . TECHNIQUE: CT examination of the abdomen and pelvis was performed following the administration of nonionic intravenous contrast. One or more of the following dose reduction techniques were utilized: *Automated exposure control (AEC) *Adjustment of mA and/or kV according to patient size *Use of iterative reconstruction technique *CT scan done according to ALARA, or ALARA/IMAGE GENTLY COMPARISON: May 13, 2019 FINDINGS: The visualized lung bases are clear. The liver, gallbladder, spleen, pancreas, adrenal glands and kidneys are normal. Urinary bladder is normal in appearance. Diverticulosis coli is seen without bowel obstruction or inflammation. No evidence for acute appendicitis. Mild atherosclerotic calcifications are seen. No lymphadenopathy or ascites is seen. Degenerative changes are seen in the spine. IMPRESSION: No evidence of acute intra-abdominal pathology. Electronically signed by: Lianna Garcias MD (09/17/2021 6:20 PM) [facility] DICTATED and SIGNED BY: LIANNA GARCIAS MD DATE: 09/17/21 [id number] 0 (EDUARDO RICO APRN) Course & Med Decision Making: Course & Med Decision Making Pertinent Labs and Imaging studies reviewed. (See chart for details) This is a 56-year-old female patient presenting to the ED today with right lower quadrant abdominal pain/right pelvic pain, symptoms began a couple minutes prior to coming to the ED, history of appendectomy. Negative urine hCG, UA negative for infection. CBC, CMP-no acute findings, pelvic ultrasound no acute findings noted in the uterus right ovary, left ovary not found due to obscuring gas instructed patient to take [id number] Gas- X Lipase 411, denies any history of alcohol use recently, positive for marijuana use, CT of the abdomen and pelvis is negative for any acute findings. Discharge to home. Follow-up with PCP and GI in the course of next week for this week. Upon discharge patient is very upset, she states she cannot believe we could not find anything seriously wrong with her acutely. She states she was here sometime last year and she was told she have sacroiliitis and she does not believe the diagnosis was accurate. She continues to complain saying she is going to call 911 and go to a different facility. She was discharged to home. Copies of her CT and ultrasound were given to her (EDUARDO RICO APRN) Course & Med Decision Making Patients Care and treatment plan provided by ER Nurse Practitioner. I was not involved in this patients care but was available for consult. Patient's chart reviewed. (TIKA CAMPO DO) Dragon Disclaimer: Mark Disclaimer: This electronic medical record was generated, in whole or in part, using a voice recognition dictation system. (EDUARDO RICO APRN) Departure Departure Impression: Primary Impression: Pelvic pain Additional Impression: Pancreatitis, acute Qualified Codes: K85.91 - Acute pancreatitis with uninfected necrosis, unspecified Disposition: HOME / SELF CARE / HOMELESS Condition: STABLE Referrals: GANESH NGUYEN (PCP) follow up next week with your doctor SHAGUFTA DOMÍNGUEZ MD follow up in one week Patient Instructions: Acute Pancreatitis, Pelvic Pain, Female, [id number] Additional Instructions: You were evaluated in the emergency room, your lipase was slightly elevated, your CT of the abdomen and pelvis is negative for any acute findings, your labs are negative for any acute findings. Your pelvic ultrasound your right ovary and uterus are normal. Your left ovary was not identifiable due to gas in your abdomen. Please follow-up with your primary care doctor in the provided GI doctor in the next 1 week. EDUARDO RICO APRN Sep 17, 2021 16:25 TIKA CAMPO DO Sep 19, 2021 18:01
[2021-09-17] MEDS ORDERED: IOHEXOL 300 MG/ML 100ML VIAL. IV ONE (17:30)
[2021-09-17] MEDS ORDERED: CONTRAST GIVEN. MC PRN (18:00)
--- NOTE | 2021-09-17 18:17 | RAD ---
Exam Date: 09/17/2021 4:05 PM US PELVIS W/TV Indication: Reason: RLQ pelvic pain / Spl. Instructions: / History: . TECHNIQUE: Multiple longitudinal and transverse sonographic images were obtained of the pelvis using a transabdominal and transvaginal approach. Color Doppler imaging was performed on the ovaries bila terally. Transvaginal imaging was included to better evaluate the uterus, ovaries, and adnexa. FINDINGS: The uterus measures 7.3 x 3.3 x 2.9 cm. The endometrial complex measures 1 mm in thickness. The left ovary is not identified due to overlying bowel gas. The right ovary measures 1.9 x 1.5 x 1. 0 cm. Color Doppler imaging demonstrates normal vascularity in the right ovary. No pelvic free fluid or mass is seen. IMPRESSION: Normal examination of the uterus and right ovary. Left ovary is not identified due to overlying shanique l gas. Electronically signed by: Enzo Garcias MD (09/17/2021 6:15 PM) [facility]
--- NOTE | 2021-09-17 18:22 | RAD ---
Exam Date: 09/17/2021 5:[address] ABDOMEN+PELVIS W Indication: Reason: abd pain / Spl. Instructions: IV omni 300 75 mls / History: . TECHNIQUE: CT examination of the abdomen and pelvis was performed following the administration of no nionic intravenous contrast. One or more of the following dose reduction techniques were utilized: *Automated exposure control (AEC) *Adjustment of mA and/or kV according to patient size *Use of iterative reconstruction technique *CT scan done according to ALARA, or ALARA/IMAGE GENTLY COMPARISON: May 13, 2019 FINDINGS: The visualized lung bases are clear. The liver, gallbladder, spleen, pancreas, adrenal glands and kidneys are normal. Urinary bladder is normal in appearance. Diverticulosis coli is seen without bowel obstruction or inflammation. No evidence for acute appendi citis. Mild atherosclerotic calcifications are seen. No lymphadenopathy or ascites is seen. Degenerative changes are seen in the spine. IMPRESSION: No evidence of acute intra-abdominal pathology. Electronically signed by: Enzo Garcias MD (09/17/2021 6:20 PM) [email or web address]
[2021-09-17 18:48] VITALS: BP 116/81
== END 2021-09-17 19:18 | disposition home or self-care (01) ==
LOC: ER 14:23
DX: K85.91 Acute pancreatitis with uninfected necrosis, unspecified (principal); R10.2 Pelvic and perineal pain
CPT/HCPCS: 36415; 74177; 76830; 76856; 80053; 80307; 81001; 83690; 85025; 96374; 96375; 99285; G0480; J2405; J3010; Q9967